=== PATIENT | female | born 1985 | race Caucasian/White ===

== ENCOUNTER → 2023-04-21 13:51 | Outpatient (REF) | payer OTHER, SELFPAY ==
--- NOTE | 2023-04-21 14:01 | CA_ITS ---
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 The calculated ejection fraction is 65% by biplane method. - No obvious valvular pathology seen on this study. Findings Left Ventricle Normal left ventricular cavity size. There is normal left ventricular wall thickness. The left ventricular systolic function is normal. The calculated ejection fraction is 65% by biplane method. There is no evidence of regional wall motion abnormalities. Diastolic function is normal for age. Right Ventricle Normal right ventricular cavity size and systolic function. Atria Both atria are normal in size. Aortic Valve There is a normal trileaflet aortic valve. There is no aortic valve stenosis. There is no aortic valve regurgitation. Mitral Valve The mitral valve appears normal. There is no mitral valve regurgitation. There is no mitral valve stenosis. Pulmonic Valve The pulmonic valve is likely normal. Tricuspid Valve Normal tricuspid valve structure. There is trace tricuspid valve regurgitation. There is no evidence of pulmonary hypertension. Great Vessels The asc aorta is normal in size. Venous The inferior vena cava is normal in size and collapses greater than 50% with inspiration. Pericardium/Pleural There is no evidence of pericardial effusion. Prior Study Comparison No prior study available for comparison. Recommendations, Care & Conclusions No obvious valvular pathology seen on this study. Measurements 2D Linear Measurements IVSd: 0.98 0.6-0.9/0.6-1.0 cm LVIDd: 4.40 3.9-5.3/4.2-5.9 cm LVIDd Index: 2.01 2.4-3.2/2.2-3.1 cm/m2 LVIDs: 2.75 2.0-3.6 cm LVPWd: 0.89 0.7-1.1 cm LA Diam: 3.20 2.7-3.8/3.0-4.0 cm LAIDs Index: 1.46 1.5-2.3 cm/m2 LV Mass: 168.01 67-162/88-224 g LV Mass Index: 76.71 43-95/49-115 g/m2 LVOT Diam: 2.10 3.0+(-)1.3 cm 2D Systolic Function EF 4C: 62.80 >55% EF 2C: 68.90 >55% EF BiP: 65.40 >55% Mitral Valve MV Pk E: 0.76 MV PK A: 0.52 MV Decel Time: 179.00 E/A: 1.50 E'Lateral: 17.20 E'Medial: 10.00 E/E' Med: 7.60 E/E' Lat: 4.40 PHT: 53.00 MVA PHT: 4.15 Decel Frio: 4.25 Aortic Valve AoV Pk Bethel: 1.31 AoV Mn Bethel: 0.95 AoV VTI: 0.24 AoV Pk Grad: 7.00 Aov Mn Grad: 4.00 TENA Cont.VTI: 2.94 LVOT LVOT Pk Bethel: 1.12 LVOT Mn Bethel: 0.69 LVOT VTI: 0.21 LVOT Pk Grad: 5.00 LVOT Mn Grad: 2.00 LVOT Diam: 2.10 LVOT Area: 3.46 Diastolic Function MV Pk E: 0.76 MV Pk A: 0.52 E/A: 1.50 E'Medial: 10.00 E/E' Med: 7.60 E' Laterial: 17.20 E/E' Lat: 4.40 Right Ventricle TAPSE (mm): 19.40 TVS' Bethel: 11.00 Tricuspid Valve TR Pk Bethel: 1.86 TR Pk Grad: 14.00 RA Press: 3.00 RVSP: 17.00 Great Vessels Aorta Sinus of Valsalva: 3.23 2.0-3.5 cm Ao Asc: 3.00 2.1-3.4 cm Updated in Other Vendor System with Status of Final Gerald Bucio MD electronically signed on 04/22/2023 3:29:48 PM with status of Final
== END ==
LOC: HO.CARD 13:51
PROVIDERS: Visit Provider Internal Medicine Cardiovascular Disease
DX: R06.02 Shortness of breath (principal)
CPT/HCPCS: 93306; Q9957

== ENCOUNTER 2024-05-25 10:50 | Outpatient (AMB) | payer OTHER, SELFPAY ==
[2024-05-25 10:54] VITALS: BP 132/80; PULSE 102; BMI 48.8
--- NOTE | 2024-05-25 10:54 | MHC.OFFVIS ---
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 Patient states that she developed COVID in 2021. Since that time, she has not been feeling good. Various symptoms including palpitations, shortness of breath, sweating at different times. She apparently saw a specialist at [facility] and told to have symptoms consistent with long COVID. She believes everything changed after she got the COVID but before that she was doing okay. She saw cardiology [place] once but nothing recently. Otherwise, no previous diagnosis of cardiac issues including coronary disease or cardiomyopathy or anything along those lines. [facility] Medical History (Updated 05/25/24 @ 11:38 by Gerald Bucio MD) Asthma Family History (Updated 05/25/24 @ 11:17 by Velvet Becker) Father High blood pressure Diabetes Mother High blood pressure Sister Heart failure Heart attack Brother Heart disease Bone cancer Sister Rapid heart beat Social History (Updated 05/25/24 @ 11:16 by Velvet Becker) Alcohol intake: never Patient Tobacco Use Status: Never used Tobacco Review of Systems Const Denies weakness ENT Denies dizziness Card Denies chest pain, Denies chest pain with activity, Denies syncope, Denies rapid heart rate, Denies pedal edema, Denies edema, Denies leg edema, Denies lightheadedness, Reports palpitations, Denies dyspnea, Denies dyspnea on exertion and Denies orthopnea Resp Denies cough, Denies dyspnea and Denies dyspnea on exertion GI Denies hematochezia and Denies change in stool character Musc Denies abnormal gait, Denies muscle cramps, Denies muscle weakness, Denies numbness, Denies radiating pain into limb and Denies tingling Neuro Denies abnormal gait, Denies dizziness, Denies syncope, Denies numbness, Denies tingling and Denies weakness Endo Reports palpitations Physical Exam Vital Signs: Last Vital Signs Pulse 102 H 05/25/24 10:54 BP 132/80 05/25/24 10:54 BMI result Body Mass Index 48.8 Const General: comfortable and no acute distress Orientation/consciousness: patient oriented x3 HEENT Other: Unremarkable Head: Yes normal to inspection Neck Neck: Yes normal visual inspection Chest Chest palpation & inspection: normal inspection of the chest Resp Auscultation: clear to auscultation bilaterally Cardio Palpation: normal PMI Heart sounds: S1 normal heart sound present, S2 normal heart sound present, no gallops, no murmurs and no rubs GI Palpation (GI): Soft to palpation Back/Spine/Pelvis Other: unremarkable Skin General skin exam: no rashes or lesions noted Neuro General: patient oriented x3 Extrem General: Yes normal to inspection Psych Mental Status: mental status grossly normal Office Procedures EKG Details: EKG with sinus tachycardia 102/Min; no significant ST-T changes and otherwise unremarkable. [place]. [id number], Complete Assessment & Plan Assessment & Plan (1) Tachycardia: Code(s): R00.0 - Tachycardia, unspecified Category: Medical Plan Constellation various symptoms like tachycardia, shortness of breath, sweating, presumed to be long COVID. Question raised if there is a component of POTS. Will do a comprehensive workup including an echocardiogram, Holter and tilt-table testing. Follow-up after the above. Orders: Orders ECG 3 day holter monitor Today R00.2 - Palpitations CA echo transthoracic complete Today G90.A - Postural orthostatic tachycardia syndrome [POTS] ECG Tilt Table Test Today G90.A - Postural orthostatic tachycardia syndrome [POTS] Coding Level of Care Code New Pt Level 4 (54040) Diagnoses Tachycardia R00.0 CPT Codes EKG - CPT: 86002-[id number], Complete ([id number])
== END 2024-05-25 12:57 | disposition home or self-care (01) ==
PROVIDERS: Visit Provider Internal Medicine
DX: R00.0 Tachycardia, unspecified (principal)
CPT/HCPCS: 93010; 99214

== ENCOUNTER → 2024-05-25 10:50 | Outpatient (BNVA) | payer OTHER, SELFPAY | PROVIDERS: Visit Provider Internal Medicine | DX: R00.0 Tachycardia, unspecified (principal); R00.2 Palpitations; R06.02 Shortness of breath; R61 Generalized hyperhidrosis | CPT/HCPCS: 93005 ==

== ENCOUNTER → 2024-07-03 13:53 | Outpatient (REF) | payer MEDICAID, SELFPAY ==
--- NOTE | 2024-07-03 13:57 | CA_ITS ---
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 Left Ventricle Normal left ventricular cavity size. There is normal left ventricular wall thickness. The left ventricular systolic function is hyperdynamic. The visually estimated ejection fraction is >70%. Spectral Doppler is indicative of a normal filling pattern. Right Ventricle Normal right ventricular cavity size and systolic function. Atria The left atrium is normal in size. Interatrial shunt cannot be excluded. The right atrium was not well visualized. Aortic Valve The aortic valve structure and function is likely normal. There is no aortic valve stenosis. There is no aortic valve regurgitation. Mitral Valve Likely normal mitral valve structure and function. There is trace mitral valve regurgitation. There is no mitral valve stenosis. Pulmonic Valve The pulmonic valve was not well visualized. Tricuspid Valve Likely normal tricuspid valve structure and function. Tricuspid regurgitation envelope is inadequate for calculation of right ventricular systolic pressure. Normal right atrial pressure. Great Vessels All visible segments of the aorta are normal in size. The pulmonary artery was not well visualized. Venous The inferior vena cava is normal in size and collapses greater than 50% with inspiration. Pericardium/Pleural There is no evidence of pericardial effusion. Measurements 2D Linear Measurements IVSd: 0.91 0.6-0.9/0.6-1.0 cm LVIDd: 3.98 3.9-5.3/4.2-5.9 cm LVIDd Index: 1.72 2.4-3.2/2.2-3.1 cm/m2 LVIDs: 2.38 2.0-3.6 cm LA Diam: 3.20 2.7-3.8/3.0-4.0 cm LAIDs Index: 1.38 1.5-2.3 cm/m2 LVOT Diam: 2.10 3.0+(-)1.3 cm 2D Systolic Function EF 4C: 68.80 >55% EF 2C: 75.90 >55% EF BiP: 72.40 >55% Mitral Valve MV Pk E: 0.74 MV PK A: 0.76 MV Decel Time: 165.00 E/A: 1.00 E'Lateral: 17.10 E'Medial: 9.25 E/E' Med: 8.00 E/E' Lat: 4.30 PHT: 48.00 MVA PHT: 4.58 Decel Banner: 4.50 Aortic Valve AoV Pk Bethel: 1.24 AoV Pk Grad: 6.00 TENA: 3.24 LVOT LVOT Pk Bethel: 1.16 LVOT Mn Bethel: 0.75 LVOT VTI: 0.23 LVOT Pk Grad: 5.00 LVOT Mn Grad: 3.00 LVOT Diam: 2.10 LVOT Area: 3.46 Diastolic Function MV Pk E: 0.74 MV Pk A: 0.76 E/A: 1.00 E'Medial: 9.25 E/E' Med: 8.00 E' Laterial: 17.10 E/E' Lat: 4.30 Right Ventricle TAPSE (mm): 24.20 TVS' Bethel: 14.20 Tricuspid Valve RA Press: 3.00 Great Vessels Aorta Sinus of Valsalva: 3.10 2.0-3.5 cm Ao Asc: 2.80 2.1-3.4 cm Pulmonary Veins Pulm Vein S/D 1.20 Pulmonary Valve PV Pk Bethel: 0.97 Peak PV Grad: 4.00 Updated in Other Vendor System with Status of Final Gio Carolina MD electronically signed on 07/03/2024 3:38:38 PM with status of Final
--- NOTE | 2024-07-03 13:57 | HM_ITS ---
* Total monitoring time 3 days. * Underlying rhythm is sinus with an average rate of 87/Min. * Rare supraventricular and ventricular ectopy. * Patient markers used in association with sinus tachycardia. * Symptoms in patient diary including heavy beats, shortness of breath, tiredness, sweating correlates with sinus tachycardia. MTDD
== END ==
LOC: HO.CARD 13:53
PROVIDERS: Visit Provider Internal Medicine
DX: R00.2 Palpitations (principal); G90.A Postural orthostatic tachycardia syndrome [POTS]
CPT/HCPCS: 93242; 93306; Q9957

== ENCOUNTER → 2024-07-03 13:57 | Outpatient (BNV) | payer MEDICAID, SELFPAY | PROVIDERS: Visit Provider Internal Medicine Cardiovascular Disease | DX: R00.0 Tachycardia, unspecified (principal) | CPT/HCPCS: 93244; 93306 ==

== ENCOUNTER 2024-09-13 14:57 | Outpatient (AMB) | payer MEDICAID, SELFPAY ==
[2024-09-13 15:00] VITALS: BP 130/82; PULSE 140; BMI 49.4
--- NOTE | 2024-09-13 15:00 | A.OFFVIS_ITS ---
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 Recently seen in consultation regarding POTS/tachycardia. Patient states that she developed COVID in 2021. Since that time, she has not been feeling good. Various symptoms including palpitations, shortness of breath, sweating at different times. She apparently saw a specialist at [facility] and told to have symptoms consistent with long COVID. She believes everything changed after she got the COVID but before that she was doing okay. She saw cardiology [place] once but nothing recently. Otherwise, no previous diagnosis of cardiac issues including coronary disease or cardiomyopathy or anything along those lines. She has completed an echocardiogram and tilt-table test. [facility] Medical History (Updated 05/25/24 @ 11:38 by Gerald Bucio MD) Asthma Family History Father High blood pressure Diabetes Mother High blood pressure Sister Heart failure Heart attack Brother Heart disease Bone cancer Sister Rapid heart beat Social History Alcohol intake: never Patient Tobacco Use Status: Never used Tobacco Review of Systems Const Denies chills, Denies fatigue, Denies fever(s), Denies weight gain and Denies weight loss ENT Denies dizziness Card Denies chest pain, Denies leg edema, Denies lightheadedness, Denies palpitations, Reports dyspnea on exertion, Denies orthopnea and Denies other Resp Denies cough and Reports dyspnea on exertion GI Denies hematochezia and Denies change in stool character Musc Denies abnormal gait, Denies muscle weakness, Denies numbness, Denies radiating pain into limb and Denies tingling Neuro Denies abnormal gait, Denies dizziness, Denies numbness and Denies tingling Endo Denies fatigue and Denies palpitations Physical Exam Vital Signs: Last Vital Signs Pulse 140 H 09/13/24 15:00 BP 130/82 09/13/24 15:00 BMI result Body Mass Index 49.4 Const General: comfortable and no acute distress Orientation/consciousness: patient oriented x3 HEENT Other: Unremarkable Head: Yes normal to inspection Neck Neck: Yes normal visual inspection Chest Chest palpation & inspection: normal inspection of the chest Resp Auscultation: clear to auscultation bilaterally Cardio Palpation: normal PMI Heart sounds: S1 normal heart sound present, S2 normal heart sound present, no gallops, no murmurs and no rubs GI Palpation (GI): Soft to palpation Back/Spine/Pelvis Other: unremarkable Skin General skin exam: no rashes or lesions noted Neuro General: patient oriented x3 Extrem General: Yes normal to inspection Psych Mental Status: mental status grossly normal Assessment & Plan Assessment & Plan (1) Tachycardia: Code(s): R00.0 - Tachycardia, unspecified Category: Medical Plan In the echocardiogram, hyperdynamic LVEF. No valvular findings and otherwise unremarkable. In the Holter, underlying rhythm is sinus with an average rate of 87/Min. Rare supraventricular/ventricular ectopy. Sinus tachycardia noted about 15% of the time. In the tilt-table test, she was having sinus tachycardia into the 130s/140s even before starting the test. On reviewing the vital signs during tilt-table, blood pressure was maintained well including some in the hypertensive range. Heart rates were in the 130s up to about 140/Min. During the actual tilt, symptoms of getting clammy, eye twitch, exhaustion, nausea. Eventually, heart rate was still 112/Min even when she returned to sitting position. It was felt that it was negative for neurocardiogenic syncope. Thought to be possibly POTS but even before starting the test, resting heart rate was already quite tachycardic and hence not entirely clear. She may very well have inappropriate sinus tachycardia. This could be again multifactorial from history of COVID as well as weight. Can try beta-blockers and see how she feels. She will let us know if any improvement or other concerns. She is on spironolactone for PCOS. If there is any blood pressure issue, we will need to adjust that. We will follow her up in a few months' time. Total time spent including review of data, counseling, documentation, coordinati on of care-32 minutes. Medications: New metoprolol tartrate 25 mg PO BID 180 tabs 1RF 90 days Coding Level of Care Code Est Pt Level 4 (33475) Diagnoses Tachycardia R00.0
== END 2024-09-13 15:25 | disposition home or self-care (01) ==
PROVIDERS: Visit Provider Internal Medicine
DX: R00.0 Tachycardia, unspecified (principal)
CPT/HCPCS: 99214

== ENCOUNTER → 2024-09-13 14:57 | Outpatient (BNVA) | payer MEDICAID, SELFPAY | PROVIDERS: Visit Provider Internal Medicine | DX: G90.A Postural orthostatic tachycardia syndrome [POTS] (principal); R00.2 Palpitations; R06.02 Shortness of breath; R61 Generalized hyperhidrosis | CPT/HCPCS: 99212 ==